=== PATIENT | female | born 1945 | race Caucasian/White ===

== ENCOUNTER 2017-12-09 12:14 | Inpatient (IN) | payer MEDICARE, OTHER ==
[~2017-12-09] VITALS: Ht 170.2 cm; Wt 59.9 kg
[2017-12-09] MEDS ORDERED: METOPROLOL TARTRATE 1 MG/ML 5ML VIAL IV ONE ×5 (12:20→23:33)
[2017-12-09] MEDS ORDERED: SODIUM CHLORIDE 0.9% 1000ML 1,000 ML IV ONE (12:20)
[2017-12-09 12:33] LABS: BASOPHILS % (AUTO) 0.6 % (0.0-5.0); EOSINOPHILS % (AUTO) 0.9 % (0.0-8.0); HEMATOCRIT 39.3 % (36-48); LYMPHOCYTES % (AUTO) 21.4 % (21.0-51.0); MEAN CORPUSCULAR HEMOGLOBIN 31.1 pg (27.0-33.0); MEAN CORPUSCULAR HGB CONC 34.1 g/dL (32.0-36.0); MEAN CORPUSCULAR VOLUME 91.3 fL (79-99); MONOCYTES % (AUTO) 8.7 % (3.0-13.0); NEUTROPHILS % (AUTO) 68.4 % (40.0-77.0); NUCLEATED RED BLOOD CELLS 0.1 % (0.0-0.19); PLATELET COUNT (AUTO) 259 K/uL (130-400); RED BLOOD CELL COUNT(AUTO) 4.31 MIL/uL (4.00-5.50); RED CELL DISTRIBUTION WIDTH 15.4 % (11.0-15.5); WHITE BLOOD COUNT (AUTO) 8.3 K/uL (4.8-10.8)
[2017-12-09 12:39] LABS: POTASSIUM 4.1 mmol/L (3.5-5.1)
[2017-12-09 12:41] LABS: INR 1.16 (0.85-1.15); PARTIAL THROMBOPLASTIN TIME 24.9 SEC (26.3-35.5); PROTHROMBIN TIME 12.1 SEC (9.6-11.6)
[2017-12-09 12:55] LABS: ALBUMIN 3.5 g/dL (3.5-5.0); CREATINE KINASE MB 1.9 ng/mL (0.5-3.6); TOTAL PROTEIN, SERUM 7.1 g/dL (6.0-8.3)
[2017-12-09 13:12] LABS: B-TYPE NATRIURETIC PEPTIDE 497 pg/mL (0-100)
[2017-12-09] MEDS ORDERED: ASPIRIN 325 MG TABLET ONE (13:12)
[2017-12-09] MEDS ORDERED: DIGOXIN 250 MCG/ML 2ML AMP ONE (13:42)
[2017-12-09] MEDS ORDERED: METOPROLOL TARTRATE 25 MG TAB ONE (14:47)
[2017-12-09] MEDS ORDERED: METOPROLOL TARTRATE 1 MG/ML 5ML VIAL IV PRN (15:45)
[2017-12-09] MEDS ORDERED: FUROSEMIDE 10 MG/ML 2ML VIAL IV SCH (17:15)
[2017-12-09] MEDS ORDERED: FUROSEMIDE 10 MG/ML 2ML VIAL ONE (17:34)
[2017-12-09] MEDS ORDERED: ENOXAPARIN SODIUM 60 MG/0.6 ML SQ ONE (18:21)
[2017-12-09] MEDS ORDERED: METOPROLOL TARTRATE 50 MG TAB ONE (19:02)
[2017-12-09] MEDS ORDERED: METOPROLOL TARTRATE 25 MG TAB PO SCH ×2 (21:00→23:25)
[2017-12-09 21:58] VITALS: BP 124/68
[2017-12-09 23:36] VITALS: BP_SYST 120; BP_SYST 152; BP_DIAS 113; BP_DIAS 122
[2017-12-09 23:37] VITALS: BP 144/113
[2017-12-09 23:38] VITALS: BP 131/72
[2017-12-10] VITALS (9 sets, daily range): BP systolic 116–160; BP diastolic 73–115
[2017-12-10] MEDS ORDERED: CEFD300C3 PO (00:49)
[2017-12-10] MEDS ORDERED: GARL1000 PO (00:49)
[2017-12-10] MEDS ORDERED: SOTA80TA PO (00:49)
[2017-12-10] MEDS ORDERED: [UNRECOGNIZED DRUG - CODE] PO (00:49)
[2017-12-10] MEDS ORDERED: [UNRECOGNIZED DRUG - OTHER] TP (00:49)
[2017-12-10] MEDS ORDERED: CARV3.12 PO (00:49)
[2017-12-10] MEDS ORDERED: ALBU8.5H8 IH (00:49)
[2017-12-10] MEDS ORDERED: LOSA25TA21 PO (00:49)
[2017-12-10] MEDS ORDERED: [UNRECOGNIZED DRUG - CODE] PO (00:49)
[2017-12-10] MEDS ORDERED: ASPI-555 PO (00:49)
[2017-12-10 01:06] LABS: CREATINE KINASE MB 1.3 ng/mL (0.5-3.6); CREATINE KINASE, TOTAL 55 U/L (21-232); MYOGLOBIN 57 ng/mL (10-92); TROPONIN I < 0.04 ng/mL (0.00-0.06)
[2017-12-10] MEDS: METOPROLOL TARTRATE 1 MG/ML 5ML VIAL IV PRN ×2 (03:00→14:56)
[2017-12-10 04:02] LABS: CREATININE 0.9 mg/dL (0.5-1.5); POTASSIUM 3.9 mmol/L (3.5-5.1)
[2017-12-10] MEDS ORDERED: BENZONATATE 100 MG CAPSULE PO PRN (08:45)
[2017-12-10] MEDS: ASPIRIN 81 MG EC TAB PO SCH (08:48)
[2017-12-10] MEDS: LOSARTAN 50 MG TABLET PO SCH (08:48)
[2017-12-10] MEDS: DIGOXIN 250 MCG/ML 2ML AMP IV SCH ×2 (08:49→12:18)
[2017-12-10] MEDS: MULTIVITAMIN WITH MINERALS TABLET PO SCH (08:49)
[2017-12-10] MEDS ORDERED: SOTALOL HCL 80 MG TABLET PO SCH (09:00)
[2017-12-10] MEDS: [UNRECOGNIZED DRUG - OTHER] PO SCH (09:00)
[2017-12-10] MEDS ORDERED: [UNRECOGNIZED DRUG - OTHER] TP PRN (09:00)
[2017-12-10] MEDS: CEFDINIR 300 MG PO SCH ×2 (09:00→21:00)
[2017-12-10] MEDS: HEALTH PO SCH (09:00)
[2017-12-10] MEDS ORDERED: CARVEDILOL 3.125 MG TABLET PO SCH (09:00)
[2017-12-10] MEDS: METOPROLOL TARTRATE 50 MG TAB PO SCH ×2 (09:00→20:29)
[2017-12-10] MEDS: GARLIC 2000 MG PO SCH (12:18)
[2017-12-10] MEDS: ENOXAPARIN SODIUM 60 MG/0.6 ML SQ SCH (17:02)
[2017-12-11 04:00] VITALS: BP 116/60
[2017-12-11 04:27] LABS: HEMATOCRIT 39.5 % (36-48); MEAN CORPUSCULAR HEMOGLOBIN 30.8 pg (27.0-33.0); MEAN CORPUSCULAR HGB CONC 33.1 g/dL (32.0-36.0); MEAN CORPUSCULAR VOLUME 92.9 fL (79-99); NUCLEATED RED BLOOD CELLS 0.1 % (0.0-0.19); PLATELET COUNT (AUTO) 229 K/uL (130-400); RED BLOOD CELL COUNT(AUTO) 4.24 MIL/uL (4.00-5.50); RED CELL DISTRIBUTION WIDTH 16.1 % (11.0-15.5); WHITE BLOOD COUNT (AUTO) 9.8 K/uL (4.8-10.8)
[2017-12-11 04:37] LABS: CREATININE 0.9 mg/dL (0.5-1.5); POTASSIUM 4.3 mmol/L (3.5-5.1)
[2017-12-11] MEDS: ENOXAPARIN SODIUM 60 MG/0.6 ML SQ SCH ×2 (06:27→21:48)
[2017-12-11 07:51] VITALS: BP 157/92
[2017-12-11] MEDS: METOPROLOL TARTRATE 1 MG/ML 5ML VIAL IV PRN (08:38)
[2017-12-11] MEDS: METOPROLOL TARTRATE 50 MG TAB PO SCH ×2 (08:43→21:48)
[2017-12-11] MEDS: MULTIVITAMIN WITH MINERALS TABLET PO SCH (08:43)
[2017-12-11] MEDS: ASPIRIN 81 MG EC TAB PO SCH (08:43)
[2017-12-11] MEDS: DIGOXIN 125 MCG TABLET PO SCH (08:43)
[2017-12-11] MEDS: LOSARTAN 50 MG TABLET PO SCH (08:44)
[2017-12-11] MEDS ORDERED: NITROGLYCERIN 0.4 MG SL TAB SL PRN (08:45)
[2017-12-11] MEDS ORDERED: HYDRALAZINE HCL 20 MG/ML VIAL IV PRN (08:45)
[2017-12-11] MEDS ORDERED: GUAIFENESIN-DM 200/20 MG 10 ML PO PRN (08:45)
[2017-12-11] MEDS ORDERED: MAG HYDROX/AL HYDROX/SIMETH ES 30 ML SUSP UDCUP PO PRN (08:45)
[2017-12-11] MEDS ORDERED: ACETAMINOPHEN-CODEINE 300/30MG TAB PO PRN ×2 (08:45)
[2017-12-11] MEDS ORDERED: ACETAMINOPHEN 325 MG TAB PO PRN ×2 (08:45)
[2017-12-11] MEDS ORDERED: MORPHINE SULFATE 4 MG/1ML SYG IV PRN (08:45)
[2017-12-11] MEDS ORDERED: LACTULOSE 20 GM/30 ML UDCUP PO PRN (08:45)
[2017-12-11] MEDS ORDERED: MORPHINE SULFATE 2 MG/ML 1ML SYG IV PRN (08:45)
[2017-12-11] MEDS: [UNRECOGNIZED DRUG - OTHER] PO SCH (08:48)
[2017-12-11] MEDS: HEALTH PO SCH (08:48)
[2017-12-11] MEDS: GARLIC 2000 MG PO SCH (08:48)
[2017-12-11] MEDS: CEFDINIR 300 MG PO SCH ×2 (08:48→21:00)
[2017-12-11 08:56] VITALS: BP 132/72
[2017-12-11] MEDS ORDERED: FUROSEMIDE 10 MG/ML 2ML VIAL IV SCH ×2 (09:00→09:45)
[2017-12-11] MEDS ORDERED: ONDANSETRON HCL MDV 20ML 2 MG/ML VIAL IVP PRN (09:00)
[2017-12-11 11:45] VITALS: BP 113/75
[2017-12-11] MEDS: DILTIAZEM HCL 60 MG TABLET PO SCH ×3 (12:42→23:55)
[2017-12-11] MEDS: FUROSEMIDE 10 MG/ML 2ML VIAL IV SCH ×2 (13:01→21:49)
[2017-12-11 16:43] VITALS: BP 135/75
[2017-12-11 20:15] VITALS: BP 151/65
[2017-12-12] VITALS (11 sets, daily range): BP systolic 116–155; BP diastolic 54–79
[2017-12-12 04:38] LABS: CREATININE 0.9 mg/dL (0.5-1.5); POTASSIUM 3.7 mmol/L (3.5-5.1)
[2017-12-12] MEDS: FUROSEMIDE 10 MG/ML 2ML VIAL IV SCH (06:29)
[2017-12-12] MEDS: DILTIAZEM HCL 60 MG TABLET PO SCH ×3 (06:29→17:00)
[2017-12-12] MEDS: [UNRECOGNIZED DRUG - OTHER] PO SCH (09:00)
[2017-12-12] MEDS: GARLIC 2000 MG PO SCH (09:00)
[2017-12-12] MEDS: HEALTH PO SCH (09:00)
[2017-12-12] MEDS: MULTIVITAMIN WITH MINERALS TABLET PO SCH (09:16)
[2017-12-12] MEDS: ASPIRIN 81 MG EC TAB PO SCH (09:16)
[2017-12-12] MEDS: METOPROLOL TARTRATE 50 MG TAB PO SCH ×2 (09:17→21:27)
[2017-12-12] MEDS: LOSARTAN 50 MG TABLET PO SCH (09:17)
[2017-12-12] MEDS: DIGOXIN 125 MCG TABLET PO SCH (09:18)
[2017-12-12] MEDS: CEFDINIR 300 MG PO SCH ×2 (09:19→21:00)
[2017-12-12] MEDS: POTASSIUM CHLORIDE 20 MEQ ERTAB PO SCH ×2 (09:19→21:27)
[2017-12-12] MEDS: ENOXAPARIN SODIUM 60 MG/0.6 ML SQ SCH ×2 (09:20→21:28)
[2017-12-12] MEDS: FUROSEMIDE 20 MG TABLET PO SCH ×2 (09:21→16:48)
[2017-12-12 21:15] LABS: APPEARANCE BODY FLUID SLIGHTLY CLOUDY (CLEAR); COLOR,BODY FLUID YELLOW (LT YELLOW); SPECIMENTYPE,BODY FLUID PLEURAL; TOTAL VOLUME,BODY FLUID 900 mL
[2017-12-12 21:16] LABS: BODY FLUID RBC 2000 /cu. mm.; BODY FLUID WBC 198 /cu. mm.
[2017-12-12 21:24] LABS: BF LYMPHOCYTE 58 %; BF MESOTHELIAL 29 %; BF MONOCYTE 3 %; BF OTHER CELLS 3
[2017-12-13] VITALS (7 sets, daily range): BP systolic 102–152; BP diastolic 63–91
[2017-12-13] MEDS: DILTIAZEM HCL 60 MG TABLET PO SCH ×4 (00:10→17:17)
[2017-12-13 04:43] LABS: BASOPHILS % (AUTO) 0.5 % (0.0-5.0); EOSINOPHILS % (AUTO) 1.8 % (0.0-8.0); HEMATOCRIT 40.4 % (36-48); LYMPHOCYTES % (AUTO) 17.5 % (21.0-51.0); MEAN CORPUSCULAR HEMOGLOBIN 30.4 pg (27.0-33.0); MEAN CORPUSCULAR HGB CONC 33.3 g/dL (32.0-36.0); MEAN CORPUSCULAR VOLUME 91.2 fL (79-99); MONOCYTES % (AUTO) 10.5 % (3.0-13.0); NEUTROPHILS % (AUTO) 69.7 % (40.0-77.0); PLATELET COUNT (AUTO) 253 K/uL (130-400); RED BLOOD CELL COUNT(AUTO) 4.43 MIL/uL (4.00-5.50); RED CELL DISTRIBUTION WIDTH 16.7 % (11.0-15.5); WHITE BLOOD COUNT (AUTO) 8.8 K/uL (4.8-10.8)
[2017-12-13 04:56] LABS: ALBUMIN 2.8 g/dL (3.5-5.0); BILIRUBIN,TOTAL 0.8 mg/dL (0.2-1.0); CREATININE 0.8 mg/dL (0.5-1.5); MAGNESIUM 2.2 mg/dL (1.80-2.40); POTASSIUM 4.1 mmol/L (3.5-5.1); TOTAL PROTEIN, SERUM 6.1 g/dL (6.0-8.3)
[2017-12-13] MEDS: GARLIC 2000 MG PO SCH (09:00)
[2017-12-13] MEDS: HEALTH PO SCH (09:00)
[2017-12-13] MEDS: [UNRECOGNIZED DRUG - OTHER] PO SCH (09:00)
[2017-12-13] MEDS: ASPIRIN 81 MG EC TAB PO SCH (10:37)
[2017-12-13] MEDS: FUROSEMIDE 20 MG TABLET PO SCH ×2 (10:38→17:18)
[2017-12-13] MEDS: DIGOXIN 125 MCG TABLET PO SCH (10:38)
[2017-12-13] MEDS: METOPROLOL TARTRATE 50 MG TAB PO SCH ×2 (10:39→22:34)
[2017-12-13] MEDS: LOSARTAN 50 MG TABLET PO SCH (10:39)
[2017-12-13] MEDS: MULTIVITAMIN WITH MINERALS TABLET PO SCH (10:39)
[2017-12-13] MEDS: POTASSIUM CHLORIDE 20 MEQ ERTAB PO SCH ×2 (10:39→21:00)
[2017-12-13] MEDS: ENOXAPARIN SODIUM 60 MG/0.6 ML SQ SCH ×2 (10:40→22:34)
[2017-12-13] MEDS ORDERED: POTASSIUM CHLORIDE 10 MEQ/TAB.SA PO ONE ×2 (22:27→22:28)
[2017-12-13] MEDS: CEFDINIR 300 MG PO SCH (22:36)
[2017-12-14] VITALS (12 sets, daily range): BP systolic 97–131; BP diastolic 51–92
[2017-12-14 04:36] LABS: INR 1.02 (0.85-1.15); PROTHROMBIN TIME 10.7 SEC (9.6-11.6)
[2017-12-14 04:44] LABS: CREATININE 0.9 mg/dL (0.5-1.5); POTASSIUM 4.3 mmol/L (3.5-5.1)
[2017-12-14] MEDS: DILTIAZEM HCL 60 MG TABLET PO SCH ×5 (05:27→23:59)
[2017-12-14] MEDS ORDERED: HEPARIN SODIUM 1000UNIT/ML 10ML VIAL ONE (07:10)
[2017-12-14] MEDS ORDERED: ISOVUE-370 50ML VIAL IV ONE (07:10)
[2017-12-14] MEDS ORDERED: LIDOCAINE HCL 2% 20ML ONE (07:10)
[2017-12-14] MEDS ORDERED: IOPAMIDOL-370 100 ML VIAL IV ONE (07:10)
[2017-12-14] MEDS ORDERED: DIGOXIN 250 MCG/ML 2ML AMP ONE (07:49)
[2017-12-14] MEDS: MULTIVITAMIN WITH MINERALS TABLET PO SCH (08:00)
[2017-12-14] MEDS: GARLIC 2000 MG PO SCH (09:00)
[2017-12-14] MEDS: METOPROLOL TARTRATE 50 MG TAB PO SCH ×2 (09:00→16:29)
[2017-12-14] MEDS: DIGOXIN 125 MCG TABLET PO SCH (09:00)
[2017-12-14] MEDS: LOSARTAN 50 MG TABLET PO SCH (09:00)
[2017-12-14] MEDS: ASPIRIN 81 MG EC TAB PO SCH (09:00)
[2017-12-14] MEDS: POTASSIUM CHLORIDE 20 MEQ ERTAB PO SCH ×2 (09:00→21:00)
[2017-12-14] MEDS: [UNRECOGNIZED DRUG - OTHER] PO SCH (09:00)
[2017-12-14] MEDS: HEALTH PO SCH (09:00)
[2017-12-14] MEDS: DOXYCYCLINE HYCLATE 100 MG TABLET PO SCH ×2 (13:13→20:40)
[2017-12-14] MEDS: FUROSEMIDE 40 MG TABLET PO SCH (16:29)
[2017-12-14] MEDS ORDERED: POTASSIUM CHLORIDE 10 MEQ/TAB.SA PO ONE ×2 (20:42)
[2017-12-15] MEDS: METOPROLOL TARTRATE 50 MG TAB PO SCH ×2 (00:40→07:38)
[2017-12-15 03:31] VITALS: BP 122/51
[2017-12-15 05:50] VITALS: BP 146/73
[2017-12-15] MEDS: DILTIAZEM HCL 60 MG TABLET PO SCH (05:50)
[2017-12-15 07:00] VITALS: BP 147/65
[2017-12-15] MEDS: HEALTH PO SCH (07:33)
[2017-12-15] MEDS: GARLIC 2000 MG PO SCH (07:33)
[2017-12-15] MEDS: [UNRECOGNIZED DRUG - OTHER] PO SCH (07:33)
[2017-12-15] MEDS: POTASSIUM CHLORIDE 20 MEQ ERTAB PO SCH (07:37)
[2017-12-15] MEDS: ASPIRIN 81 MG EC TAB PO SCH (07:38)
[2017-12-15] MEDS: LOSARTAN 50 MG TABLET PO SCH (07:38)
[2017-12-15] MEDS: DIGOXIN 125 MCG TABLET PO SCH (07:38)
[2017-12-15] MEDS: MULTIVITAMIN WITH MINERALS TABLET PO SCH (07:38)
[2017-12-15] MEDS: FUROSEMIDE 40 MG TABLET PO SCH (07:38)
[2017-12-15] MEDS: DOXYCYCLINE HYCLATE 100 MG TABLET PO SCH (07:38)
[2017-12-15] MEDS ORDERED: DILT-36 PO (08:41)
[2017-12-15] MEDS ORDERED: APIX5TAB PO (08:41)
[2017-12-15] MEDS ORDERED: POTA20TA12 PO (08:41)
[2017-12-15] MEDS ORDERED: METO50 PO (08:41)
[2017-12-15] MEDS ORDERED: FURO40TA7 PO (08:41)
[2017-12-15] MEDS ORDERED: DIGO125T87 PO (08:41)
[2017-12-15 11:00] VITALS: BP 119/45
[2017-12-29] MEDS ORDERED: METO50TA18 PO (10:44)
[2017-12-29] MEDS ORDERED: DILT120C47 PO (10:44)
[2018-02-12] MEDS ORDERED: AMIO200T5 PO (09:40)
[2018-02-12] MEDS ORDERED: METO25TA6 PO (09:40)
[2018-02-12] MEDS ORDERED: FURO20TA4 PO (09:40)
== END 2017-12-15 12:45 | disposition home or self-care (01) | DRG 286 ==
LOC: EDH 12:14 → OBSVTOIN 14:48 → EDHIP 14:48 → 2DH 21:49
PROVIDERS: ADMIT Internal Medicine; ATTEND Internal Medicine
PROC: 4A023N8 Measurement of Cardiac Sampling and Pressure, Bilateral, Percutaneous Approach (ICD-10-PCS; principal; 2017-12-14)
PROC: B2151ZZ Fluoroscopy of Left Heart using Low Osmolar Contrast (ICD-10-PCS; 2017-12-14)
PROC: 0W9B3ZZ Drainage of Left Pleural Cavity, Percutaneous Approach (ICD-10-PCS; 2017-12-14)
PROC: B2111ZZ Fluoroscopy of Multiple Coronary Arteries using Low Osmolar Contrast (ICD-10-PCS; 2017-12-14)
DX: I48.0 Paroxysmal atrial fibrillation (principal); I50.33 Acute on chronic diastolic (congestive) heart failure; J90 Pleural effusion, not elsewhere classified; I34.0 Nonrheumatic mitral (valve) insufficiency; J93.9 Pneumothorax, unspecified; I34.1 Nonrheumatic mitral (valve) prolapse; I80.8 Phlebitis and thrombophlebitis of other sites; I11.0 Hypertensive heart disease with heart failure; E78.5 Hyperlipidemia, unspecified; I25.10 Atherosclerotic heart disease of native coronary artery without angina pectoris; J06.9 Acute upper respiratory infection, unspecified; Z90.710 Acquired absence of both cervix and uterus; Z82.49 Family history of ischemic heart disease and other diseases of the circulatory system
CPT/HCPCS: 36415; 71045; 71046; 80048; 80053; 80162; 82550; 82553; 82945; 83615; 83735; 83874; 83880; 83986; 84157; 84443; 84484; 85025; 85027; 85610; 85730; 87071; 87103; 87116; 87205; 87206; 88108; 89051; 93005; 93306; 93460; 99291; A4344; C1729; C1894; J1160; J1644; J1650; J1940; J3490; J7030; Q9967

== ENCOUNTER 2017-12-16 19:18 | Emergency (ER) | payer MEDICARE, OTHER ==
[~2017-12-16 19:18] MED LIST: ALBU8.5H8 IH; APIX5TAB PO; CEFD300C3 PO; DIGO125T87 PO; DILT-36 PO; FURO40TA7 PO; GARL1000 PO; LOSA25TA21 PO; METO50 PO; POTA20TA12 PO; [UNRECOGNIZED DRUG - CODE] PO; [UNRECOGNIZED DRUG - CODE] PO; [UNRECOGNIZED DRUG - OTHER] TP
[2017-12-16] MEDS ORDERED: ACETAMINOPHEN EXTRA STRENGTH 500 MG TABLET ONE (20:00)
[2017-12-16] MEDS ORDERED: CEPHALEXIN 500 MG CAPSULE ONE (21:24)
[2017-12-29] MEDS ORDERED: DILT120C47 PO (10:44)
[2017-12-29] MEDS ORDERED: METO50TA18 PO (10:44)
[2018-02-12] MEDS ORDERED: AMIO200T5 PO (09:40)
[2018-02-12] MEDS ORDERED: FURO20TA4 PO (09:40)
[2018-02-12] MEDS ORDERED: METO25TA6 PO (09:40)
== END 2017-12-16 21:45 | disposition home or self-care (01) ==
LOC: EDH 19:18
DX: L53.8 Other specified erythematous conditions (principal); M79.675 Pain in left toe(s); I10 Essential (primary) hypertension; I25.10 Atherosclerotic heart disease of native coronary artery without angina pectoris
CPT/HCPCS: 36415; 84550

== ENCOUNTER 2018-02-14 08:44 | Day surgery (SDC) | payer MEDICARE, OTHER ==
[2018-02-12 09:05] VITALS: BP 140/68
[2018-02-12 09:10] LABS: BASOPHILS % (AUTO) 0.8 % (0.0-5.0); EOSINOPHILS % (AUTO) 3.1 % (0.0-8.0); HEMATOCRIT 40.3 % (36-48); LYMPHOCYTES % (AUTO) 19.8 % (21.0-51.0); MEAN CORPUSCULAR HEMOGLOBIN 29.8 pg (27.0-33.0); MEAN CORPUSCULAR HGB CONC 32.7 g/dL (32.0-36.0); MEAN CORPUSCULAR VOLUME 91.1 fL (79-99); NEUTROPHILS % (AUTO) 65.3 % (40.0-77.0); PLATELET COUNT (AUTO) 277 K/uL (130-400); RED BLOOD CELL COUNT(AUTO) 4.42 MIL/uL (4.00-5.50); RED CELL DISTRIBUTION WIDTH 15.3 % (11.0-15.5); WHITE BLOOD COUNT (AUTO) 9.1 K/uL (4.8-10.8)
[2018-02-12 09:28] LABS: POTASSIUM 3.7 mmol/L (3.5-5.1)
[2018-02-12 09:30] LABS: INR 1.04 (0.85-1.15); PARTIAL THROMBOPLASTIN TIME 26.8 SEC (26.3-35.5); PROTHROMBIN TIME 10.9 SEC (9.6-11.6)
[~2018-02-14] VITALS: Ht 170.2 cm; Wt 57.8 kg
[~2018-02-14 08:44] MED LIST changes: -ALBU8.5H8 IH; +AMIO200T5 PO; -CEFD300C3 PO; -DILT-36 PO; +DILT120C47 PO; +FURO20TA4 PO; -FURO40TA7 PO; -GARL1000 PO; -LOSA25TA21 PO; +METO25TA6 PO; -METO50 PO; -POTA20TA12 PO; +SODIUM CHLORIDE 0.9% 1000ML 1,000 ML IV SCH; -[UNRECOGNIZED DRUG - CODE] PO; -[UNRECOGNIZED DRUG - CODE] PO; -[UNRECOGNIZED DRUG - OTHER] TP
[2018-02-14 09:05] VITALS: BP 134/59
[2018-02-14] MEDS ORDERED: DIGO250T84 PO (10:25)
[2018-02-14] MEDS ORDERED: PROPOFOL 10 MG/ML 20ML VIAL IV ONE (10:50)
[2018-02-14] MEDS ORDERED: LIDOCAINE HCL 1% 20 ML VIAL ONE (10:51)
[2018-02-14 12:00] VITALS: BP 139/57
== END 2018-02-14 12:20 | disposition home or self-care (01) ==
LOC: DAH 08:44
PROVIDERS: ATTEND Internal Medicine Cardiovascular Disease
DX: I48.1 Persistent atrial fibrillation (principal); Z82.49 Family history of ischemic heart disease and other diseases of the circulatory system; I07.1 Rheumatic tricuspid insufficiency; I47.1 Supraventricular tachycardia; Z79.899 Other long term (current) drug therapy; Z79.01 Long term (current) use of anticoagulants; Z98.890 Other specified postprocedural states
CPT/HCPCS: 36415; 80048; 85025; 85610; 85730; 92960; 93005; A4606; J2704; J7030; 99156

== ENCOUNTER 2018-05-31 11:21 | Emergency (ER) | payer MEDICARE, OTHER ==
[~2018-05-31 11:21] MED LIST changes: -DIGO125T87 PO; +DIGO250T84 PO; -SODIUM CHLORIDE 0.9% 1000ML 1,000 ML IV SCH
[2018-05-31 13:08] LABS: BASOPHILS % (AUTO) 0.8 % (0.0-5.0); EOSINOPHILS % (AUTO) 0.7 % (0.0-8.0); HEMATOCRIT 44.4 % (36-48); LYMPHOCYTES % (AUTO) 13.2 % (21.0-51.0); MEAN CORPUSCULAR HEMOGLOBIN 28.2 pg (27.0-33.0); MEAN CORPUSCULAR HGB CONC 32.8 g/dL (32.0-36.0); MONOCYTES % (AUTO) 7.4 % (3.0-13.0); NEUTROPHILS % (AUTO) 77.9 % (40.0-77.0); PLATELET COUNT (AUTO) 255 K/uL (130-400); RED BLOOD CELL COUNT(AUTO) 5.17 MIL/uL (4.00-5.50); RED CELL DISTRIBUTION WIDTH 17.6 % (11.0-15.5); WHITE BLOOD COUNT (AUTO) 8.1 K/uL (4.8-10.8)
[2018-05-31 13:19] LABS: CREATININE 1.2 mg/dL (0.5-1.5); POTASSIUM 3.5 mmol/L (3.5-5.1)
[2018-05-31 13:27] LABS: ALBUMIN 3.3 g/dL (3.5-5.0); BILIRUBIN,TOTAL 0.5 mg/dL (0.2-1.0); TOTAL PROTEIN, SERUM 7.3 g/dL (6.0-8.3)
[2018-05-31 13:30] LABS: INR 1.08 (0.85-1.15); PARTIAL THROMBOPLASTIN TIME 26.4 SEC (26.3-35.5); PROTHROMBIN TIME 11.3 SEC (9.6-11.6)
== END 2018-05-31 14:20 | disposition home or self-care (01) ==
LOC: EDH 11:21
DX: R42 Dizziness and giddiness (principal); R53.1 Weakness; I10 Essential (primary) hypertension; I25.10 Atherosclerotic heart disease of native coronary artery without angina pectoris; I48.91 Unspecified atrial fibrillation
CPT/HCPCS: 36415; 80053; 82550; 84484; 85025; 85610; 85730; 93005